=== PATIENT | male | born 1935 | race Native Hawaiian/Other Pacific Islander ===

== ENCOUNTER 2016-10-11 10:11 | Outpatient (CLI) | payer OTHER | END 2016-10-11 20:11 | disposition home or self-care (01) | LOC: LAB 10:11 | DX: N39.0 Urinary tract infection, site not specified (principal) | CPT/HCPCS: 81000; 87077; 87086; 87088; 87186 ==

== ENCOUNTER → 2016-10-13 09:26 | Outpatient (CLI) | payer OTHER ==
[~2016-10-13 09:26] MED LIST: AMITRIPTYLIN50 MG PO; CHILD ASA81 MG OR; DONE5TAB PO; GLUMETZA500 MG PO; HEARTBURN150 MG OR; NAMENDA10 MG OR; TEMA15CA19 PO; TOPROL XL200 MG PO; VITAMIN B-125000 MC1 PO
[2016-10-13 10:14] LABS: PLATELET COUNT 415 K/uL (142-355)
[2016-10-13 10:23] LABS: POTASSIUM 3.9 mmol/L (3.6-5.2); SODIUM 131 mmol/L (136-145)
== END | disposition home or self-care (01) ==
LOC: LABW 09:26
PROVIDERS: Nurse Practitioner
DX: N40.0 Benign prostatic hyperplasia without lower urinary tract symptoms (principal); E11.9 Type 2 diabetes mellitus without complications; K21.9 Gastro-esophageal reflux disease without esophagitis; R53.83 Other fatigue; E78.00 Pure hypercholesterolemia, unspecified; I10 Essential (primary) hypertension; Z79.899 Other long term (current) drug therapy; D51.0 Vitamin B12 deficiency anemia due to intrinsic factor deficiency; G20 Parkinson's disease; N39.0 Urinary tract infection, site not specified; Z85.46 Personal history of malignant neoplasm of prostate; Z12.5 Encounter for screening for malignant neoplasm of prostate
CPT/HCPCS: 36415; 80053; 80061; 81000; 82607; 83036; 84443; 85027; 87088; G0103

== ENCOUNTER 2016-10-16 15:12 | Outpatient (CLI) | payer OTHER | END 2016-10-16 20:14 | disposition home or self-care (01) | LOC: LAB 15:12 | DX: D64.9 Anemia, unspecified (principal); N39.0 Urinary tract infection, site not specified | CPT/HCPCS: 82728; 83540; 83550 ==

== ENCOUNTER 2016-11-14 15:58 | Observation (INO) | payer OTHER ==
[~2016-11-14] VITALS: Ht 180.3 cm; Wt 72.6 kg
--- NOTE | 2016-11-14 16:16 | NUR ---
Pt. ADMITTED TO ROOM [address] VALVERDE. C/O FEVER AND BEING UNABLE TO EAT.
[2016-11-14 17:26] VITALS: BP 107/65; TEMP 98.1; Ht 180.3 cm; Wt 72.6 kg
[2016-11-14 19:12] LABS: PLATELET COUNT 400 K/uL (142-355)
[2016-11-14 19:23] LABS: POTASSIUM 3.6 mmol/L (3.6-5.2); SODIUM 131 mmol/L (136-145)
[2016-11-14 20:00] VITALS: BP 117/62; TEMP 99.5
[2016-11-15 00:13] VITALS: BP 123/67; TEMP 99
[2016-11-15 04:00] VITALS: BP 119/68; TEMP 98.1
[2016-11-15 08:00] VITALS: BP 125/65; TEMP 98
[2016-11-15 08:02] LABS: PLATELET COUNT 387 K/uL (142-355); POTASSIUM 3.4 mmol/L (3.6-5.2); SODIUM 131 mmol/L (136-145)
[2016-11-15] MEDS ORDERED: HEARTBURN150 MG OR (08:11)
[2016-11-15] MEDS ORDERED: GLUMETZA500 MG PO (08:12)
[2016-11-15] MEDS ORDERED: DONE5TAB PO (08:12)
[2016-11-15] MEDS ORDERED: CHILD ASA81 MG OR (08:13)
[2016-11-15] MEDS ORDERED: VITAMIN B-125000 MC1 PO (08:14)
[2016-11-15] MEDS ORDERED: NAMENDA10 MG OR (08:14)
[2016-11-15] MEDS ORDERED: TOPROL XL200 MG PO (08:15)
[2016-11-15] MEDS ORDERED: AMITRIPTYLIN50 MG PO (08:16)
[2016-11-15] MEDS ORDERED: TEMA15CA19 PO (08:16)
[2016-11-15 12:00] VITALS: BP 111/63; TEMP 98.7
[2016-11-15 16:00] VITALS: BP 120/68; TEMP 98
[2016-11-15 20:17] VITALS: BP 136/74; TEMP 100.6
[2016-11-16 00:07] VITALS: BP 125/75; TEMP 98.1
[2016-11-16 04:00] VITALS: BP 126/69; TEMP 97.9
[2016-11-16 05:14] LABS: PLATELET COUNT 348 K/uL (142-355)
[2016-11-16 05:16] LABS: POTASSIUM 3.8 mmol/L (3.6-5.2); SODIUM 130 mmol/L (136-145)
[2016-11-16 07:54] VITALS: BP 133/66; TEMP 97.7
[2016-11-16 12:00] VITALS: BP 130/64; TEMP 98
== END 2016-11-16 16:00 | disposition home or self-care (01) ==
LOC: MED/SURG 15:58
PROVIDERS: Emergency Medicine; ADMIT Family Medicine
DX: E86.0 Dehydration (principal); R50.9 Fever, unspecified; I10 Essential (primary) hypertension; Z87.440 Personal history of urinary (tract) infections; F03.90 Unspecified dementia, unspecified severity, without behavioral disturbance, psychotic disturbance, mood disturbance, and anxiety; D50.8 Other iron deficiency anemias; E11.9 Type 2 diabetes mellitus without complications
CPT/HCPCS: 36415; 36591; 80048; 80053; 81000; 83735; 85027; 96360; 96361; 96367; 96372; 96374; 99220; G0378; G0379; J1650; J3490